=== PATIENT | female | born 1930 | race Caucasian/White ===

== ENCOUNTER 2016-04-26 09:12 | Day surgery (SDC) | payer OTHER ==
[~2016-04-26] VITALS: Ht 147.3 cm; Wt 51.8 kg
[2016-04-26 09:35] VITALS: BP 165/71; PULSE 77; RESP 20; TEMP 97.5; O2SAT 95
[2016-04-26] MEDS ORDERED: VITA2000 PO (09:35)
[2016-04-26] MEDS ORDERED: ENAL20TA PO (09:35)
[2016-04-26] MEDS ORDERED: GLIP5TAB8 PO (09:35)
[2016-04-26] MEDS ORDERED: COQ-100C5 (09:35)
[2016-04-26] MEDS ORDERED: ASPI-147 PO (09:35)
[2016-04-26] MEDS ORDERED: METF1000 PO (09:35)
[2016-04-26] MEDS ORDERED: VITA500C9 CHEW (09:35)
[2016-04-26] MEDS ORDERED: RESV1CAP2 (09:35)
[2016-04-26] MEDS ORDERED: OMEG100010 (09:35)
[2016-04-26] MEDS ORDERED: LEVO50TA4 PO (09:35)
[2016-04-26] MEDS ORDERED: VITATAB11 (09:35)
[2016-04-26] MEDS ORDERED: SODIUM CHLOR 0.9% 1000 ML IV SCH (10:00)
[2016-04-26 10:03] LABS: AUTOMATED NEUTROPHIL # 21.1 TH/MM3 (1.8-7.7); BASOPHIL # 0.2 TH/MM3 (0-0.2); BASOPHIL % 0.7 % (0.0-2.0); EOSINOPHIL # 0.4 TH/MM3 (0-0.4); EOSINOPHIL % 1.5 % (0.0-4.0); HEMATOCRIT 46.3 % (35.0-46.0); LYMPH % 13.7 % (9.0-44.0); LYMPHOCYTE # 3.7 TH/MM3 (1.0-4.8); MEAN CELL VOLUME 65.7 FL (80.0-100.0); MEAN CORPUSCULAR HEMOGLOBIN 20.5 PG (27.0-34.0); MEAN CORPUSCULAR HGB CONC 31.2 % (32.0-36.0); NEUT % 79.1 % (16.0-70.0); PLATELET COUNT 424 TH/MM3 (150-450); RED BLOOD COUNT 7.06 MIL/MM3 (4.00-5.30); WHITE BLOOD COUNT 26.6 TH/MM3 (4.0-11.0)
[2016-04-26 10:07] LABS: HEMO FLAGS AUTO DIFF
[2016-04-26 10:58] LABS: SCAN/DIFF AUTO DIFF CONFIRMED
[2016-04-26] MEDS ORDERED: fentaNYL CITRATE 250 MCG/5 ML AMP ONE (11:34)
[2016-04-26] MEDS ORDERED: MIDAZOLAM HCL 5 MG/5 ML VIAL ONE (11:34)
[2016-04-26] MEDS ORDERED: LIDOCAINE 1%/EPINEPHrine 1:100,000 SOLN 20 ML VIAL ONE (12:39)
[2016-04-26 13:40] VITALS: BP 139/58; PULSE 83; RESP 16; O2SAT 92
[2016-04-26 13:45] LABS: BONE MARROW PROCESSING COMPLETE; IRON STAIN DONE; JENNER GIEMSA STAIN DONE
[2016-04-26 13:55] VITALS: BP 118/53; PULSE 74; RESP 18; O2SAT 94
[2016-04-26 14:25] VITALS: BP 131/57; PULSE 73; RESP 18; O2SAT 95
[2016-04-26 14:55] VITALS: BP 112/53; PULSE 73; RESP 16; O2SAT 95
--- NOTE | 2016-04-26 15:16 | RADRPT ---
EXAM DATE/TIME: 04/26/2016 13:00 [place] COMPARISON: No previous studies available for comparison. INDICATIONS : Chronic lymphomatic leukemia. CT FLUORO TIME: 0.3 minutes SEDATION TIME: 30 minutes BIOPSY SITE: Right Bone marrow MEDICATION(S): 1.) 2 mg midazolam (Versed) IV 2.) 100 mcg fentanyl (Sublimaze) IV DEVICE(S): 1.) 11 gauge On-Control needle Bone Marrow MEDICAL HISTORY : Cardiovascular disease. Hypertension. Diabetes mellitus type 2. Leukemia SURGICAL HISTORY : Appendectomy. Cholecystectomy. Hysterectomy. ENCOUNTER: Initial ACUITY: 1 day PAIN SCORE: 3/10 LOCATION: Pelvic A total of one core specimen(s) were obtained and sent to the laboratory for pathologic evaluation. PROCEDURE: 1. CT guided bone marrow biopsy. Prior to the procedure informed consent was obtained. Any appropriate prior imaging studies were rev iewed. Using automated exposure control and adjustment of the mA and/or kV according to patient size , radiation dose was kept as low as reasonably achievable to obtain optimal diagnostic quality images . The site was prepped in a sterile fashion. Full sterile technique was used, including cap, mask, ruthie rile gloves and gown and a large sterile sheet. Hand hygiene and 2% chlorhexidine and/or betadine/al cohol prep was utilized per protocol for cutaneous antisepsis. The skin and subcutaneous tissues wer e infiltrated with local anesthetic solution. With CT guidance the previously identified target was localized. Biopsy was performed using the presc ribed needle as above. Following biopsy marrow aspiration was performed with repeat puncture. Adequa te hemostasis was obtained with compression at the puncture site. Follow-up CT scan reveals no hemorrhage. Conscious sedation was performed with the prescribed dosages and duration as above in the presence of an independent trained radiology nurse to assist in the monitoring of the patient. EKG and oximetry remained stable throughout the procedure. The patient tolerated the procedure well and there were no complications. The patient was sent to Radiology Outpatient Unit in stable condition. CONCLUSION: 1. Uncomplicated CT guided bone marrow aspirate. 2. Uncomplicated CT guided bone marrow biopsy. Ulisses Tellez MD on April 26, 2016 at 15:14 Board Certified Radiologist. This report was verified electronically.
[2016-04-26 15:25] VITALS: BP 146/66; PULSE 72; RESP 16; O2SAT 96
== END 2016-04-26 16:15 | disposition home or self-care (01) ==
LOC: HRAD 09:12 → HRIP 09:13 → HRAD 16:15
PROVIDERS: ATTEND Internal Medicine
DX: C91.10 Chronic lymphocytic leukemia of B-cell type not having achieved remission (principal); I25.10 Atherosclerotic heart disease of native coronary artery without angina pectoris; I10 Essential (primary) hypertension; E11.9 Type 2 diabetes mellitus without complications; D75.1 Secondary polycythemia
CPT/HCPCS: 38221; 77012; 85025; 85097; 88184; 88185; 88237; 88264; 88305; 88311; 88313; 88341; 88342; 99152; 99153; C1830; G0364; J2250; J3010; 88280